=== PATIENT | female | born 1955 | race Caucasian/White ===

== ENCOUNTER 2022-04-24 07:46 | Emergency (ER) | payer MEDICARE ==
[2022-04-24 07:57] VITALS: RESP 16
--- NOTE | 2022-04-24 08:18 | ED ---
Fall HPI - General Chief Complaint: Fall Stated Complaint: Left Elbow Pain Time Seen by Provider: 04/24/22 07:58 Source: patient, RN notes reviewed Mode of arrival: ambulatory Limitations: no limitations - History of Present Illness Initial Comments: 67-year-old female presents emergency Department with chief complaint of abdominal pain. Patient states she happened on night states that she tripped on some left arm injury. Patient denies any head injury no loss conscious. She states she has no back neck branch extremity injury other than left elbow. States it's swollen, very painful to move patient states she has limited range of motion denies any numbness or tingling she states that the pain is very minimal at rest she does not want anything for pain. - Related Data Allergies Allergy/AdvReac Type Severity Reaction Status Date / Time codeine Allergy Unknown Verified 04/24/22 07:57 Review of Systems ROS Statement: Those systems with pertinent positive or pertinent negative responses have been documented in the HPI. ROS Other: All systems not noted in ROS Statement are negative. Past Medical History Past Medical History: GERD/Reflux, Hypertension History of Any Multi-Drug Resistant Organisms: None Reported Past Surgical History: No Surgical Hx Reported Past Psychological History: Anxiety Smoking Status: Never smoker Past Alcohol Use History: None Reported Past Drug Use History: None Reported General Exam Limitations: no limitations General appearance: alert, in no apparent distress Head exam: Present: atraumatic, normocephalic, normal inspection Eye exam: Present: normal appearance, PERRL, EOMI. Absent: scleral icterus, conjunctival injection, periorbital swelling ENT exam: Present: normal exam, mucous membranes moist Neck exam: Present: normal inspection, full ROM. Absent: tenderness, meningismus, lymphadenopathy Respiratory exam: Present: normal lung sounds bilaterally. Absent: respiratory distress, wheezes, rales, rhonchi, stridor Cardiovascular Exam: Present: regular rate, normal rhythm, normal heart sounds. Absent: systolic murmur, diastolic murmur, rubs, gallop, clicks Extremities exam: Present: other (left elbow swelling, tenderness with palpation , limited ROM, NV intact) Neurological exam: Present: alert. Absent: motor sensory deficit Skin exam: Present: warm, dry, intact, normal color. Absent: rash Course Vital Signs 04/24/22 07:54 Temperature 98.9 F Pulse Rate 89 Respiratory 16 Rate Blood Pressure 175/98 O2 Sat by Pulse 94 L Oximetry - Reevaluation(s) Reevaluation #1: 04/24/22 08:18 Patient was offered pain medication upon arrival and evaluation patient declines. Procedures - Orthopedic Splinting/Casting Injury #1 Side: left Upper Extremity Injury Location: long arm, elbow Upper Extremity Immobilizer: volar splint, synthetic pre-padded splint Medical Decision Making - Medical Decision Making X-ray shows evidence of comminuted FRACTURE. CASE DISCUSSED WITH ON-CALL ORTHOPEDICS RECOMMENDS PATIENT BE SPLINTED AND WILL FOLLOW-UP WITH HER PATIENT OFFICE PATIENT'S WISHES SLING SHE AGAIN WAS OFFERED PAIN MEDICATION DECLINES. Disposition Clinical Impression: Fall, Closed fracture of left olecranon process Disposition: HOME SELF-CARE Condition: Stable Instructions (If sedation given, give patient instructions): Elbow Fracture (ED) Additional Instructions: Please return to the Emergency Department if symptoms worsen or any other concerns. Is patient prescribed a controlled substance at d/c from ED?: No Referrals: Shaun Guthrie DO [Primary Care Provider] - 1-2 days Christopher Tapia DO [Doctor of Osteopathic Medicine] - 1-2 days Time of Disposition: 09:40
--- NOTE | 2022-04-24 08:20 | XR ---
EXAMINATION TYPE: XR elbow complete LT DATE OF EXAM: 04/24/2022 COMPARISON: None HISTORY: Fall, pain TECHNIQUE: 3 view left elbow FINDINGS: There is a comminuted fracture of the olecranon with intra-articular extension. There is di astases of the fracture fragments. The proximal olecranon is angulated in relation to the ulna. Radius aligns normally humerus. Soft tissue swelling is over the fracture site. Anterior and posterio r fat pads are elevated. IMPRESSION: 1. Comminuted fracture olecranon with overlying soft tissue swelling.
[2022-04-24] MEDS ORDERED: ONDANSETRON 4 MG ODT STARTER PACK 2 TAB BTL PO STA (09:38)
[2022-04-24] MEDS ORDERED: traMADol 50 MG STARTER PACK 3 TAB BTL PO STA (09:38)
[2022-04-24 09:59] VITALS: BP 171/98; PULSE 77; TEMP 98.3
== END 2022-04-24 09:58 | disposition home or self-care (01) ==
LOC: EC 07:46
DX: S52.022A Displaced fracture of olecranon process without intraarticular extension of left ulna, initial encounter for closed fracture (principal); I10 Essential (primary) hypertension; Z88.5 Allergy status to narcotic agent; W01.0XXA Fall on same level from slipping, tripping and stumbling without subsequent striking against object, initial encounter
CPT/HCPCS: 73080; 99284; S0119

== ENCOUNTER → 2022-04-25 | Outpatient (CLI) | payer MEDICARE ==
--- NOTE | 2022-04-25 21:12 | CT ---
Result: History: Follow-up elbow fracture Comparison: Radiographs 04/24/2022 Technique: Noncontrast axial CT images of the left elbow was obtained with images provided in bone an d soft tissue algorithm. Coronal and sagittal reformats were provided and reviewed. Automated dose control was used for this exam. Volumetric 3-D images generated on an independent workstation were provided and reviewed. Findings: There is moderately comminuted and distracted olecranon fracture. There is small fracture of the radi al head. There is tiny ossific density involving the olecranon coronoid process and suspicious for ch ip fracture. There is a splint in place. No evidence of dislocation. There is soft tissue edema about the fracture sites. There is elbow joint effusion. Impression: Olecranon and radial head fractures as above.
== END | disposition home or self-care (01) ==
LOC: RADCTMAIN 16:36
PROVIDERS: ATTEND Orthopaedic Surgery
DX: S52.032A Displaced fracture of olecranon process with intraarticular extension of left ulna, initial encounter for closed fracture (principal)

== ENCOUNTER → 2022-05-02 | Outpatient (CLI) | payer MEDICARE ==
[2022-05-02 13:51] LABS: INR 0.9 (<1.2); Partial Thromboplastin Time 22.6 sec (22.0-30.0); Prothrombin Time 10.4 sec (9.0-12.0)
[2022-05-02 18:36] LABS: African American GFR (CKD) 93.3 (60.0-200.0); Albumin 4.1 g/dL (3.8-4.9); Albumin/Globulin Ratio 1.46 (1.60-3.17); Anion Gap 11.5 mmol/L (10.00-18.00); BUN/Creat Ratio 17.39 Ratio (12.00-20.00); Blood Urea Nitrogen 13.3 mg/dL (9.0-27.0); Calcium 9.6 mg/dL (8.7-10.3); Carbon Dioxide 27.4 mmol/L (20.0-27.5); Globulin 2.8 g/dL (1.6-3.3); Non-African American GFR(CKD) 80.5 (60.0-200.0); Potassium 4.2 mmol/L (3.5-5.5); Total Bilirubin 0.5 mg/dL (0.30-1.20); Total Protein 6.9 g/dL (6.2-8.2)
[2022-05-02 18:44] LABS: Basophils # (A) 0.08 X 10*3/uL (0.00-0.10); Eosinophils # (A) 0.04 X 10*3/uL (0.04-0.35); Eosinophils % (A) 0.5 %; HCT 41.3 % (37.2-46.3); Immature Grans, Automated 0.1 %; Lymphocytes # (A) 1.61 X 10*3/uL (0.90-5.00); Lymphocytes % (A) 20.4 %; MCH 34.6 pg (27.0-32.0); MCHC 33.9 g/dL (32.0-37.0); Monocytes % (A) 10.1 %; NRBC Per 100 WBC 0 /100 WBCS (0.0-0.0); Neutrophils # (A) 5.35 X 10*3/uL (1.80-7.70); Neutrophils % (A) 67.9 %; Platelet Count 318 X 10*3/uL (140-440); RBC 4.05 X 10*6/uL (4.10-5.20); WBC 7.89 X 10*3/uL (4.50-10.00)
== END | disposition home or self-care (01) ==
LOC: LABWHC1 12:50
PROVIDERS: ATTEND Orthopaedic Surgery Orthopaedic Trauma
DX: S52.022A Displaced fracture of olecranon process without intraarticular extension of left ulna, initial encounter for closed fracture (principal); Y99.9 Unspecified external cause status
CPT/HCPCS: 36415; 80053; 85025; 85610; 85730

== ENCOUNTER → 2022-06-27 | Outpatient (CLI) | payer MEDICARE ==
--- NOTE | 2022-06-27 14:58 | BD ---
EXAMINATION TYPE: Axial Bone Density DATE OF EXAM: 06/27/2022 COMPARISON: NONE CLINICAL HISTORY: 67 years year old Female. ICD-10 CODE: Z780 POST TRIXIE WITHOUT HRT Height: 5 FT 3 3/4 IN Weight: 145 FRAX RISK QUESTIONS: Alcohol (3 or more units per day): NONO Family History (Parent hip fracture): YES Glucocorticoids (More than 3mos): NO (Ex: prednisone, prednisolone, methylprednisolone, dexamethasone, and hydrocortisone). History of Fracture in Adulthood: YES Secondary Osteoporosis: 1. Type 1 Diabetes: NO 2. Hyperthyroidism: NO 3. Menopause before 45: YES 4. Malnutrition: NO 5. Chronic liver disease: NO Rheumatoid Arthritis: NO Current Tobacco Use: NO RISK FACTORS HISTORY OF: Surgery to Spine/Hip(right/left)/Wrist (right/left): NO Family History of Osteoporosis: YES Active: YES Diet low in dairy products/other sources of calcium: NO Postmenopausal woman: YES Take estrogen and/or progesterone medications: NO Lost more than 2 inches in height since high school: NO Frequent falls: NO Poor Health: GOOD Hyperparathyroidism: NO Adrenal Insufficiency: NO MEDICATIONS: Additional Medications: BLOOD PRESSURE, ANXIETY MEDS Additional History: EXAM MEASUREMENTS: Bone mineral densitometry was performed using the [employer] System. Bone mineral density as measured about the Lumbar spine is: ----- L1-L4(G/cm2): 1.312 T Score Values are as follows: ----- L1: 3.2 ----- L2: 2.2 ----- L3: -0.3 ----- L4: -0.3 ----- L1-L4: 1.1 Bone mineral density has: INCREASED 0.6 % since study of: 2016 Bone mineral density about the R hip (g/cm2): 0.950 Bone mineral density about the L hip (g/cm2): 0.853 T Score values are as follows: -----R Neck: -0.6 -----L Neck: -1.3 -----R Total: -0.3 -----L Total: -0.7 Bone mineral density has: DECREASED -1.6 % since study of: 2016 FRAX%s: The graph provided illustrates a 14.9 % chance for a major osteoporotic fx and a 1.6 % chance for the hips probability for fx in 10 years time. IMPRESSION: Osteopenia (T Score between -2.5 and -1). There is slightly increased risk of fracture and the patient may be considered for treatment. Re-Screen 2-5 years. NOTE: T-SCORE=SD OF THE YOUNG ADULT MEAN.
--- NOTE | 2022-06-28 17:54 | MM ---
Reason for Exam: Screening (asymptomatic). Last mammogram was performed 6 year(s) and 0 month(s) ago. Patient History: Menarche at age 12. First Full-Term at age 19. Postmenopausal. Estrogen for 9 years from age 49 until age 58. Progesterone for 9 years from age 49 until age 58. 1979, Implant on the right side. 1979, Implant on the left side. Risk Values: Crissy 5 year model risk: 1.2%. NCI Lifetime model risk: 4.2%. Prior Study Comparison: 10/02/2011 Bilateral Diagnostic Mammogram, [facility]. 02/25/2013 Bilateral Diagnostic Mammogram, [facility]. 07/08/2016 Bilateral Screening Mammogram, [facility]. Tissue Density: There are scattered fibroglandular densities. Findings: Analyzed By CAD. Bilateral breast prostheses are present. Calcifications along the right breast prosthesis. Focal asymmetry is adjacent to the breast prosthesis within the right breast craniocaudal projection. This was present previously. No suspicious groups of microcalcifications, spiculated or lobular masses, architectural distortion or other secondary signs of malignancy are mammographically apparent. Overall Assessment: Benign, BI-RAD 2 Management: Screening Mammogram of both breasts in 1 year. A negative mammogram report should not preclude additional follow up of suspicious palpable abnormalities. Patient should continue monthly self breast exam. A clinical breast exam by your physician is recommended on an annual basis and results should be correlated with mammographic findings. Electronically signed and approved by: Rene Wang D.O. Radiologis
== END | disposition home or self-care (01) ==
LOC: RADMAMWWP 13:30
PROVIDERS: ATTEND Family Medicine
DX: Z12.31 Encounter for screening mammogram for malignant neoplasm of breast (principal); M85.852 Other specified disorders of bone density and structure, left thigh; Z78.0 Asymptomatic menopausal state
CPT/HCPCS: 77063; 77067; 77080